=== PATIENT | male | born 1945 | race Caucasian/White ===

== ENCOUNTER 2019-09-20 07:37 | Day surgery (SDC) | payer MEDICARE ==
[2019-09-20] MEDS ORDERED: PROPOFOL 10 MG/ML VIAL IV ONE (07:38)
[2019-09-20] MEDS ORDERED: LIDOCAINE 2% MDV (20MG/ML) 20ML VIAL IV ONE (07:38)
[2019-09-20] MEDS ORDERED: 0.9 % SODIUM CHLORIDE 1000ML 500 ML IV ONE (08:11)
[2019-09-20] MEDS ORDERED: TIMOLOL MALEATE 0.5% 5ML BTL OPTH ONE (09:15)
[2019-09-20] MEDS ORDERED: NEOM/BACI/POLY/HC 3.5 GM OPTH OINT OPTH ONE (09:15)
[2019-09-20] MEDS ORDERED: TETRACAINE HCL 0.5% OPTH 2ML SOLU OPTH ONE (09:15)
[2019-09-20] MEDS ORDERED: LIDOCAINE 2% MDV (20MG/ML) 20ML VIAL INJ ONE (09:15)
[2019-09-20] MEDS ORDERED: EPINEPHRINE 1 MG/ML AMPUL IO ONE (09:15)
[2019-09-20] MEDS ORDERED: BRIMONIDINE TARTRATE 0.2% OPTHALMIC DROPS OP ONE (09:15)
--- NOTE | 2019-09-20 14:00 | OP NOTE CHAMES ---
DATE OF PROCEDURE: 09/20/2019 PREOPERATIVE DIAGNOSIS: Nuclear sclerotic cataract, left eye. POSTOPERATIVE DIAGNOSIS: Nuclear sclerotic cataract, left eye. OPERATION: Phacoemulsification of cataractous lens with implantation of intraocular lens. LENS IMPLANT USED: [employer] Model PCB00 + 11.5 diopters. COMPLICATIONS: None. PROCEDURE IN DETAIL: Following a retrobulbar and facial block, the patient was prepped and draped in the usual fashion for eye surgery. A lid speculum was placed in the left eye after which a 2.4 mm tunnel wound was placed at the temporal limbus and dissected into clear cornea. A paracentesis was placed at 2 oclock hours to the left and right of the initial incision and the chamber deepened with Viscoelastic. The keratome was then used to enter the anterior chamber after which the continuous circular capsulorrhexis was accomplished without difficulty using a bent needle and a Utrata forceps. Hydrodissection and hydrodelineation of the lens was performed after which the nucleus of the lens was removed using the Phaco handpiece in the [id number]-[id number]-vipenay technique. The residual cortical material was irrigated and aspirated from the eye after which the bag and chamber were re-examined. The bag was re-inflated with Viscoelastic and the intraocular lens injected into the capsular bag where it centered well. The Viscoelastic was then copiously irrigated and aspirated from the eye after which the temporal tunnel wound and paracentesis were hydrated and the wounds were examined. They were noted to be watertight. The lid speculum was removed from the eye and the eye patched and shielded. The patient was transferred to the recovery room in satisfactory condition and given an appointment to be reexamined in the clinic later today or as directed by Dr. Landaverde. JOB NUMBER: [id number] MTDD
== END 2019-09-20 09:52 | disposition home or self-care (01) ==
LOC: SUR 07:37
PROVIDERS: ATTEND Ophthalmology
DX: H25.12 Age-related nuclear cataract, left eye (principal); E78.00 Pure hypercholesterolemia, unspecified; H40.9 Unspecified glaucoma; J44.9 Chronic obstructive pulmonary disease, unspecified; J45.909 Unspecified asthma, uncomplicated; R01.1 Cardiac murmur, unspecified; G62.9 Polyneuropathy, unspecified
CPT/HCPCS: J0171; J7030

== ENCOUNTER 2019-10-04 06:51 | Day surgery (SDC) | payer MEDICARE ==
[2019-10-04] MEDS ORDERED: LIDOCAINE 2% MDV (20MG/ML) 20ML VIAL IV ONE (06:52)
[2019-10-04] MEDS ORDERED: PROPOFOL 10 MG/ML VIAL IV ONE (06:52)
[2019-10-04] MEDS ORDERED: 0.9 % SODIUM CHLORIDE 1000ML 500 ML IV ONE (07:20)
[2019-10-04] MEDS ORDERED: TETRACAINE HCL 0.5% OPTH 2ML SOLU OPTH ONE (08:34)
[2019-10-04] MEDS ORDERED: EPINEPHRINE 1 MG/ML AMPUL IO ONE (08:34)
[2019-10-04] MEDS ORDERED: LIDOCAINE 2% MDV (20MG/ML) 20ML VIAL INJ ONE (08:34)
[2019-10-04] MEDS ORDERED: TIMOLOL MALEATE 0.5% 5ML BTL OPTH ONE (08:35)
[2019-10-04] MEDS ORDERED: NEOM/BACI/POLY/HC 3.5 GM OPTH OINT OPTH ONE (08:35)
[2019-10-04] MEDS ORDERED: BRIMONIDINE TARTRATE 0.2% OPTHALMIC DROPS OP ONE (08:35)
--- NOTE | 2019-10-08 08:40 | Operative Note ---
DATE OF SURGERY: 10/04/2019 PREOPERATIVE DIAGNOSIS: Nuclear sclerotic cataract, right eye. POSTOPERATIVE DIAGNOSIS: Nuclear sclerotic cataract, right eye. OPERATION: Phacoemulsification of cataractous lens with implantation of intraocular lens, temporal approach. LENS IMPLANT USED: [place] Model PCB00 +13.5 diopters. COMPLICATIONS: None. PROCEDURE IN DETAIL: Following a retrobulbar and facial block, the patient was prepped and draped in the usual fashion for eye surgery. A lid speculum was placed in the right eye after which a 2.4 mm tunnel wound was placed at the temporal limbus and dissected into clear cornea. A paracentesis was placed at 2 clock hours to the left and right of the initial incision and the chamber deepened with Viscoelastic. The keratome was then used to enter the anterior chamber after which the right capsulorrhexis was accomplished without difficulty using a bent needle and Utrata forceps. Hydrodissection and hydrodelineation of the lens was performed after which the nucleus of the lens was removed using the Phaco handpiece in the divide and conquer technique. The residual cortical material was irrigated and aspirated from the eye, after which the bag and chamber were reexamined. The bag was re-inflated with Viscoelastic and the intraocular lens injected into the capsular bag where it centered well. The Viscoelastic was then copiously irrigated and aspirated from the eye after which the temporal tunnel wound and paracentesis were hydrated and the wounds were examined. They were noted to be watertight. The lid speculum was removed from the eye and the eye patched and shielded. The patient was transferred to recovery in satisfactory condition. RADHA
== END 2019-10-04 09:20 | disposition home or self-care (01) ==
LOC: SUR 06:51
PROVIDERS: ATTEND Ophthalmology
DX: H25.11 Age-related nuclear cataract, right eye (principal); H40.9 Unspecified glaucoma; E78.00 Pure hypercholesterolemia, unspecified; J44.9 Chronic obstructive pulmonary disease, unspecified; I44.7 Left bundle-branch block, unspecified; R01.1 Cardiac murmur, unspecified; J45.909 Unspecified asthma, uncomplicated
CPT/HCPCS: J0171; J7030